=== PATIENT | female | born 1960 | race Hispanic/Latino ===

== ENCOUNTER 2022-10-09 20:48 | Emergency (ER) | payer BC ==
[2022-10-09] VITALS (12 sets, daily range): BP systolic 127–189; BP diastolic 55–85
[~2022-10-09] VITALS: Ht 149.9 cm; Wt 83.0 kg
[2022-10-09] MEDS ORDERED: LISINOPRIL10 MG PO (21:12)
[2022-10-09] MEDS ORDERED: LEVOTHYROXIN50 MCG PO (21:12)
[2022-10-09] MEDS ORDERED: MICROZIDE PO (21:13)
[2022-10-09 21:43] LABS: BASO% 0.2 % (0-3); EOS% 1.9 % (0-8); HEMOGLOBIN 12.7 g/dl (12.0-16.0); IMMATURE GRANULOCYTES 0.1 % (0.0-5.0); LYMPH% 24.9 % (15-41); MEAN CELL VOLUME 82.4 fL CALC (80.0-100.0); MEAN CORPUSCULAR HGB 27.5 pG CALC (26.0-32.0); MEAN CORPUSCULAR HGB CONC 33.4 g/dL CAL (32.0-36.0); NEUT# 6.06 thou/uL (2.00-7.15); NEUT% 66.9 % (42-76); RED BLOOD COUNT 4.61 mill/uL (4.20-5.60); RED CELL DISTRI WIDTH 12.5 % (11.5-15.5)
[2022-10-09 21:56] LABS: ALBUMIN 4.2 g/dL (3.2-5.0); ALKALINE PHOSPHATASE 123 u/l (38-126); ANION GAP 7 (6-22 (CALC)); BILIRUBIN, TOTAL 0.1 mg/dL (0.0-1.4); BUN 20 mg/dL (8-23); BUN/CREATININE RATIO 26 (12-20 (CALC)); CARBON DIOXIDE 33 mmol/l (22-30); CHLORIDE 100 mmol/l (95-108); CREATININE 0.8 mg/dL (0.5-1.0); GFR FOR AFR.AMER. > 60 ML/MIN (>=60 (CALC)); GFR OTHER RACES > 60 ML/MIN (>=60 (CALC)); LIPASE 64 u/l (23-300); POTASSIUM 3.4 mmol/l (3.5-5.1); SGOT/AST 27 u/l (9-36); SODIUM 137 mmol/l (137-146); TOTAL PROTEIN 7.6 g/dL (6.3-8.2)
[2022-10-09 22:02] LABS: D-DIMER 0.21 mg/L (0.19-0.60)
[2022-10-09 22:09] LABS: ACT PARTIAL THROMBO TIME 28.1 SECONDS (20.0-32.5); PROTHROMBIN TIME 10.3 SECONDS (9.0-12.5)
[2022-10-09] MEDS ORDERED: LISINOPRIL20 M1 PO (22:46)
== END 2022-10-09 23:18 | disposition home or self-care (01) | DRG 305 ==
LOC: ED 20:48
PROVIDERS: Family Medicine
DX: I10 Essential (primary) hypertension (principal); R07.89 Other chest pain